=== PATIENT | female | born 1985 | race Caucasian/White ===

== ENCOUNTER 2017-12-10 12:32 | Inpatient (IN) | payer BC ==
[2017-12-10] MEDS ORDERED: Sodium Chloride 0.9% 10 ML Syringe FLUSH PRN (12:34)
[2017-12-10] MEDS ORDERED: Nalbuphine 20 MG/1 ML Amp IVPUSH PRN (12:34)
[2017-12-10] MEDS ORDERED: Ondansetron 4 MG/2 ML SDV IVPUSH PRN (12:34)
--- NOTE | 2017-12-10 12:39 | PCM.LDHP ---
L&D History of Present Illness - General Date of Service: 12/10/17 Admit Problem/Dx: Patient Status Order with Admit Dx/Problem 12/10/17 12:35 Patient Status [ADT] Routine Admission Diagnosis/Problem Admission Diagnosis/Problem Supervision of normal Source of Information: Patient History Limitations: Reports: No Limitations - History of Present Illness Introduction:: Patient is a 32 y/o at 40 1/7 wks who presents for IOL for concerns of decreased FM. Seen in clinic for concerns of less FM over the last 2 days. NST done and overall appropriate, but reviewed options and given Fritz score of 8 patient was offered IOL. She accepted. Otherwise doing well. - Related Data Allergies/Adverse Reactions: Allergies Allergy/AdvReac Type Severity Reaction Status Date / Time amoxicillin Allergy Rash Verified 12/10/17 13:46 diphenhydramine AdvReac Disorientat Verified 12/10/17 13:47 [From Benadryl] ion Home Medications: Home Meds . 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: : 2 Para: 0 LMP (Approximate): - Past Surgical History GI Surgical History: Reports: Other (See Below) (Pilonidal cyst) Female Surgical History: Reports: D&C Social & Family History - Tobacco Use Smoking Status *Q: Never Smoker - Alcohol Use Alcohol Use History: No - Recreational Drug Use Recreational Drug Use: No H&P Review of Systems - Review of Systems: Review Of Systems: See Below General: Reports: No Symptoms Pulmonary: Reports: No Symptoms Cardiovascular: Reports: No Symptoms Gastrointestinal: Reports: No Symptoms Genitourinary: Reports: No Symptoms Musculoskeletal: Reports: No Symptoms L&D Exam - Exam Exam: See Below - OB Specific Contraction Intensity: Irritability Movement: Active Heart Tones: Present Heart Tones per Min: 130 Heart Rate (FHR) Variability: Moderate (6-25 bmp) (Some periods of minimal variabilitiy as well) Presentation: Vertex - Fritz Score Fritz Score Cervix Position: Posterior Fritz Score Consistency: Soft Fritz Score Effacement: >80% Fritz Score Dilation: 1-2 cm Fritz Score 's Station: -1 ,0 Fritz Score Total: 8 - Exam General: Alert, Oriented, Cooperative Lungs: Clear to Auscultation, Normal Respiratory Effort Cardiovascular: Regular Rate, Regular Rhythm GI/Abdominal Exam: Soft, Non-Tender Genitourinary: Normal external exam Extremities: Normal Inspection Skin: Warm, Dry, Intact - Patient Data Result Diagrams: 12/10/17 12:54 - Problem List (1) 40 weeks gestation of SNOMED Code(s): 91688120 ICD Code: Z3A.40 - 40 WEEKS GESTATION OF Status: Acute Current Visit: Yes (2) Decreased movement SNOMED Code(s): 555527682 ICD Code: O36.8190 - DECREASED MOVEMENTS, UNSP TRIMESTER, UNSP Status : Acute Current Visit: Yes Qualifiers: Fetus number: single or unspecified fetus Trimester: third trimester Qualified Code(s): O36.8130 - Decreased movements, third trimester, not applicable or unspecified Problem List Initiated/Reviewed/Updated: Yes Orders Last 24hrs: Active Orders 24 hr Category Date Time Status Patient Status [ADT] Routine ADT 12/10/17 12:35 Ordered Activity as Tolerated [RC] PFP Care 12/10/17 12:34 Ordered Communication Order [RC] ASDIRECTED Care 12/10/17 12:34 Ordered Communication Order [RC] ASDIRECTED Care 12/10/17 12:34 Ordered Communication Order [RC] ASDIRECTED Care 12/10/17 12:34 Ordered Monitoring [RC] INTERMITTENT Care 12/10/17 12:34 Ordered Notify Provider [RC] ASDIRECTED Care 12/10/17 12:34 Ordered Notify Provider [RC] PRN Care 12/10/17 12:34 Ordered Peripheral IV Care [RC] . DIRECTED Care 12/10/17 12:35 Ordered Up ad Zuly [RC] ASDIRECTED Care 12/10/17 12:34 Ordered Urinary Catheter Assessment [RC] ASDIRECTED Care 12/10/17 12:34 Ordered Vaginal Exam [RC] ASDIRECTED Care 12/10/17 12:34 Ordered Vital Signs [RC] ASDIRECTED Care 12/10/17 12:34 Ordered Vital Signs [RC] PER UNIT ROUTINE Care 12/10/17 12:34 Ordered Regular Diet [DIET] Diet 12/10/17 Lunch Ordered CBC W/O DIFF,HEMOGRAM [HEME] Routine Lab 12/10/17 12:34 Ordered TYPE AND SCREEN [BBK] Routine Lab 12/10/17 12:34 Ordered Lactated Ringers [Ringers, Lactated] 1,000 ml Med 12/10/17 12:45 Ordered IV ASDIRECTED Nalbuphine [Nubain] Med 12/10/17 12:34 Ordered 10 mg IVPUSH Q2H PRN Ondansetron [Zofran] Med 12/10/17 12:34 Ordered 4 mg IVPUSH Q4H PRN Oxytocin/Lactated Ringers [Pitocin in LR 10 Units/1,000 Med 12/10/17 12:45 Ordered ML] 10 unit in 1,000 ml IV .CONTINUOUS Oxytocin/Lactated Ringers [Pitocin in LR 10 Units/1,000 Med 12/10/17 12:45 Ordered ML] 10 unit in 1,000 ml IV TITRATE Sodium Chloride 0.9% [Saline Flush] Med 12/10/17 12:34 Ordered 10 ml FLUSH ASDIRECTED PRN Electronic Heart Tones Internal [WOMSER] Per Unit Oth 12/10/17 12:34 Ordered Routine Peripheral IV Insertion Adult [OM.PC] Routine Oth 12/10/17 12:34 Ordered Resuscitation Status Routine Resus Stat 12/10/17 12:34 Ordered Assessment/Plan Comment:: 32 y/o at 40 1/7 wks presents for IOL for decreased FM * CBC and T&S * GBS negative, no need for antibiotics * Pitocin for IOL, AROM when appropriate * Pain management per patient preference * Anticipate
[2017-12-10] MEDS ORDERED: Oxytocin/Lactated Ringers 10 UNIT/1,000 ML BAG IV SCH ×2 (12:45)
[2017-12-10] MEDS: Lactated Ringers 1,000 ML IV SCH ×2 (14:06→18:34)
--- NOTE | 2017-12-10 19:33 | PCM.PREANE ---
Preanesthetic Assessment - Anesthesia/Transfusion/Family Hx Anesthesia History: Prior Anesthesia Reaction Type of Anesthesia Reaction: Excessive Nausea/Vomiting Family History of Anesthesia Reaction: No Transfusion History: No Prior Transfusion(s) - Review of Systems General: No Symptoms Pulmonary: No Symptoms Cardiovascular: No Symptoms Gastrointestinal: No Symptoms Neurological: No Symptoms Other: Reports: None - Physical Assessment Pulse: 82 Respiratory Rate: 18 Blood Pressure: 121/88 Vital Signs: Last Vital Signs Temp 98.0 F 12/10/17 12:34 Pulse 82 12/10/17 12:43 Resp 18 12/10/17 12:34 BP 121/88 12/10/17 12:43 Pulse Ox Height: 5 ft Weight: 90.718 kg ASA Class: 2 Mental Status: Alert & Oriented x3 Airway Class: Mallampati = 1 Dentition: Reports: Normal Dentition Thyro-Mental Finger Breadths: 0 Mouth Opening Finger Breadths: 0 ROM/Head Extension: Full Lungs: Clear to Auscultation, Normal Respiratory Effort Cardiovascular: Regular Rate, Regular Rhythm - Lab Values: Laboratory Last Values WBC 9.24 K/mm3 (3.98-10.04) 12/10/17 12:54 RBC 4.23 M/mm3 (3.98-5.22) 12/10/17 12:54 Hgb 12.6 gm/L (11.2-15.7) 12/10/17 12:54 Hct 37.7 % (34.1-44.9) 12/10/17 12:54 MCV 89.1 fl (79.4-94.8) 12/10/17 12:54 MCH 29.8 pg (25.6-32.2) 12/10/17 12:54 MCHC 33.4 g/dl (32.2-35.5) 12/10/17 12:54 RDW Std Deviation 42.6 fL (36.4-46.3) 12/10/17 12:54 Plt Count 180 K/mm3 (182-369) L 12/10/17 12:54 MPV 11.6 fl (9.4-12.3) 12/10/17 12:54 Blood Type AB POSITIVE 12/10/17 12:54 Gel Antibody Screen Negative 12/10/17 12:54 - Allergies Allergies/Adverse Reactions: Allergies Allergy/AdvReac Type Severity Reaction Status Date / Time amoxicillin Allergy Rash Verified 12/10/17 13:46 diphenhydramine AdvReac Disorientat Verified 12/10/17 13:47 [From Benadryl] ion - Blood Blood Available: No - Acknowledgements Anesthesia Type Planned: Epidural Pt an Appropriate Candidate for the Planned Anesthesia: Yes Alternatives and Risks of Anesthesia Discussed w Pt/Guardian: Yes Pt/Guardian Understands and Agrees with Anesthesia Plan: Yes PreAnesthesia Questionnaire Cardiovascular History: Reports: None Respiratory History: Reports: None Gastrointestinal History: Reports: GERD (with preg) 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 [No Known Home Meds] 12/10/17 [History] - CURRENT (IN HOUSE) MEDS Current Meds: Current Medications Lactated Ringer's (Ringers, Lactated) 1,000 mls @ 40 mls/hr IV ASDIRECTED JOSÉ ANTONIO Last Admin: 12/10/17 18:34 Dose: 40 mls/hr Oxytocin/Lactated Ringer's (Pitocin In Lr 10 Units/1,000 Ml) 10 unit in 1,000 mls @ 12 mls/hr IV TITRATE JOSÉ ANTONIO; 2 MUNITS/MIN PRN Reason: Protocol Last Titration: 12/10/17 17:15 Dose: 10 munits/min, 60 mls/hr Oxytocin/Lactated Ringer's (Pitocin In Lr 10 Units/1,000 Ml) 10 unit in 1,000 mls @ 500 mls/hr IV .CONTINUOUS JOSÉ ANTONIO Nalbuphine HCl (Nubain) 10 mg IVPUSH Q2H PRN PRN Reason: Pain (moderate 4-6) Ondansetron HCl (Zofran) 4 mg IVPUSH Q4H PRN PRN Reason: Nausea/Vomiting Sodium Chloride (Saline Flush) 10 ml FLUSH ASDIRECTED PRN PRN Reason: Keep Vein Open
[2017-12-10] MEDS ORDERED: ePHEDrine 50 MG/ML SDV IVPUSH PRN (19:34)
--- NOTE | 2017-12-10 20:32 | PCM.PNLD ---
Labor Progress Note - VS & Meds Vital Signs: Last Vital Signs Temp 36.7 C 12/10/17 12:34 Pulse 82 12/10/17 19:33 Resp 18 12/10/17 19:33 BP 121/88 12/10/17 19:33 Pulse Ox Active Medications: Current Medications Ephedrine Sulfate (Ephedrine Sulfate) 5 mg IVPUSH ASDIRECTED PRN PRN Reason: Hypotension Fentanyl (Sublimaze) 100 mcg EPIDUR Q3H PRN PRN Reason: Pain Fentanyl/Bupivacaine HCl (Fentanyl/Bupivacaine/Ns 2 Mcg-0.125% 100 Ml) 100 ml EPIDUR ASDIRECTED JOSÉ ANTONIO Lactated Ringer's (Ringers, Lactated) 1,000 mls @ 40 mls/hr IV ASDIRECTED JOSÉ ANTONIO Last Admin: 12/10/17 18:34 Dose: 40 mls/hr Oxytocin/Lactated Ringer's (Pitocin In Lr 10 Units/1,000 Ml) 10 unit in 1,000 mls @ 12 mls/hr IV TITRATE JOSÉ ANTONIO; 2 MUNITS/MIN PRN Reason: Protocol Last Titration: 12/10/17 17:15 Dose: 10 munits/min, 60 mls/hr Oxytocin/Lactated Ringer's (Pitocin In Lr 10 Units/1,000 Ml) 10 unit in 1,000 mls @ 500 mls/hr IV .CONTINUOUS JOSÉ ANTONIO Nalbuphine HCl (Nubain) 10 mg IVPUSH Q2H PRN PRN Reason: Pain (moderate 4-6) Ondansetron HCl (Zofran) 4 mg IVPUSH Q4H PRN PRN Reason: Nausea/Vomiting Sodium Chloride (Saline Flush) 10 ml FLUSH ASDIRECTED PRN PRN Reason: Keep Vein Open - Uterine Contractions Uterine Monitoring Mode: External [place] Contraction Intensity: Mild to Moderate - Monitoring Monitor Mode: External Ultrasound Heart Rate (FHR) Baseline: 140 Heart Rate (FHR) Variability: Moderate (6-25 bmp) (Some periods of minimal variabilitiy as well) Accelerations: Present, 15x15 Decelerations: None Strip Review: Category I - Vaginal Exam Dilation (cm): 2-3 Effacement (Percent): 80 Station: -1 Cervical Position: Midposition - Labor Progress (Free Text) Labor Progress: Patient doing well on 12 of pitocin. Contractions not that uncomfortable. AROM performed.. Continue present management
[2017-12-10] MEDS ORDERED: Bupivacaine 0.25% 10 ML SDV ONE (22:22)
[2017-12-10] MEDS ORDERED: Lidocaine 1.5% with EPINEPHrine 1:200,000 5 ML Amp ONE (22:22)
[2017-12-11] MEDS: Lactated Ringers 1,000 ML IV SCH ×4 (02:30→15:30)
[2017-12-11] MEDS: fentaNYL 100 MCG/2 ML SDV EPIDUR PRN ×2 (03:43→15:30)
[2017-12-11] MEDS: Bupivacaine/fentaNYL/NS 100 ML Bag EPIDUR SCH ×2 (03:43→11:17)
--- NOTE | 2017-12-11 05:34 | PCM.PNLD ---
Labor Progress Note - VS & Meds Vital Signs: Last Vital Signs Temp 36.7 C 12/10/17 12:34 Pulse 82 12/10/17 19:33 Resp 18 12/10/17 19:33 BP 121/88 12/10/17 19:33 Pulse Ox Active Medications: Current Medications Ephedrine Sulfate (Ephedrine Sulfate) 5 mg IVPUSH ASDIRECTED PRN PRN Reason: Hypotension Fentanyl (Sublimaze) 100 mcg EPIDUR Q3H PRN PRN Reason: Pain Last Admin: 12/11/17 03:43 Dose: 100 mcg Fentanyl/Bupivacaine HCl (Fentanyl/Bupivacaine/Ns 2 Mcg-0.125% 100 Ml) 100 ml EPIDUR ASDIRECTED JOSÉ ANTONIO Last Admin: 12/11/17 03:43 Dose: 100 ml Lactated Ringer's (Ringers, Lactated) 1,000 mls @ 40 mls/hr IV ASDIRECTED JOSÉ ANTONIO Last Admin: 12/11/17 04:09 Dose: 999 mls/hr Oxytocin/Lactated Ringer's (Pitocin In Lr 10 Units/1,000 Ml) 10 unit in 1,000 mls @ 12 mls/hr IV TITRATE JOSÉ ANTONIO; 2 MUNITS/MIN PRN Reason: Protocol Last Titration: 12/10/17 20:55 Dose: 0 munits/min, 0 mls/hr Oxytocin/Lactated Ringer's (Pitocin In Lr 10 Units/1,000 Ml) 10 unit in 1,000 mls @ 500 mls/hr IV .CONTINUOUS JOSÉ ANTONIO Nalbuphine HCl (Nubain) 10 mg IVPUSH Q2H PRN PRN Reason: Pain (moderate 4-6) Last Admin: 12/11/17 01:17 Dose: 10 mg Ondansetron HCl (Zofran) 4 mg IVPUSH Q4H PRN PRN Reason: Nausea/Vomiting Sodium Chloride (Saline Flush) 10 ml FLUSH ASDIRECTED PRN PRN Reason: Keep Vein Open - Uterine Contractions Uterine Monitoring Mode: External [place] Contraction Intensity: Moderate - Monitoring Monitor Mode: External Ultrasound Heart Rate (FHR) Baseline: 130 Heart Rate (FHR) Variability: Moderate (6-25 bmp) (Some periods of minimal variabilitiy as well) Accelerations: Present, 15x15 Decelerations: Prolonged (>2x10 min) (One prolonged at ) Strip Review: Category II - Vaginal Exam Dilation (cm): 7 Effacement (Percent): 80 Station: 0 Cervical Position: Midposition - Labor Progress (Free Text) Labor Progress: Patient overall doing well. AROM was at 1999 last night when was on pitocin of 12. Pitocin decreased to off by 2129 due to frequent contractions occurring about every one minute. At about 0100 patient was 6 cm dilated. She eventually requested an epidural around 0315 this AM and is now resting comfortably. Checked by myself now and is 7 cm. Contractions are more spaced out, about every 5-7 minutes. FHR is reassuring overall. Some periods of minimal variability, but overall moderate variability and with positive accelerations. Will re-start pitocin for augmentation and continue to assess closely. Will sign out patient to Dr. Garrett later this AM. Patient aware.
--- NOTE | 2017-12-11 17:19 | PCM.PNLD ---
Labor Progress Note - VS & Meds Vital Signs: Last Vital Signs Temp 36.7 C 12/10/17 12:34 Pulse 112 H 12/11/17 15:30 Resp 18 12/10/17 19:33 BP 122/68 12/11/17 15:30 Pulse Ox 97 12/11/17 03:26 Active Medications: Current Medications Ephedrine Sulfate (Ephedrine Sulfate) 5 mg IVPUSH ASDIRECTED PRN PRN Reason: Hypotension Fentanyl (Sublimaze) 100 mcg EPIDUR Q3H PRN PRN Reason: Pain Last Admin: 12/11/17 15:30 Dose: 100 mcg Fentanyl/Bupivacaine HCl (Fentanyl/Bupivacaine/Ns 2 Mcg-0.125% 100 Ml) 100 ml EPIDUR ASDIRECTED JOSÉ ANTONIO Last Admin: 12/11/17 11:17 Dose: 100 ml Lactated Ringer's (Ringers, Lactated) 1,000 mls @ 40 mls/hr IV ASDIRECTED JOSÉ ANTONIO Last Admin: 12/11/17 15:30 Dose: 500 mls/hr Oxytocin/Lactated Ringer's (Pitocin In Lr 10 Units/1,000 Ml) 10 unit in 1,000 mls @ 12 mls/hr IV TITRATE JOSÉ ANTONIO; 2 MUNITS/MIN PRN Reason: Protocol Last Titration: 12/11/17 16:11 Dose: 19 munits/min, 114 mls/hr Oxytocin/Lactated Ringer's (Pitocin In Lr 10 Units/1,000 Ml) 10 unit in 1,000 mls @ 500 mls/hr IV .CONTINUOUS JOSÉ ANTONIO Nalbuphine HCl (Nubain) 10 mg IVPUSH Q2H PRN PRN Reason: Pain (moderate 4-6) Last Admin: 12/11/17 01:17 Dose: 10 mg Ondansetron HCl (Zofran) 4 mg IVPUSH Q4H PRN PRN Reason: Nausea/Vomiting Sodium Chloride (Saline Flush) 10 ml FLUSH ASDIRECTED PRN PRN Reason: Keep Vein Open - Uterine Contractions Uterine Monitoring Mode: External [place] Contraction Intensity: Moderate - Monitoring Monitor Mode: External Ultrasound Heart Rate (FHR) Baseline: 130 Heart Rate (FHR) Variability: Moderate (6-25 bmp) (Some periods of minimal variabilitiy as well) Accelerations: Present, 15x15 Decelerations: Prolonged (>2x10 min) (One prolonged at ) Strip Review: Category II - Vaginal Exam Dilation (cm): 9 Effacement (Percent): 80 Station: 0 Cervical Position: Midposition - Labor Progress (Free Text) Labor Progress: Minimal progress since 11am. At this point adequate contractions since 2:30 pm. No progress since then. Recommending primary . Patient deciding on this.
[2017-12-11] MEDS ORDERED: Metoclopramide 10 MG/2 ML SDV ONE (17:26)
[2017-12-11] MEDS ORDERED: Morphine PF 1 MG/ML Amp ONE (17:27)
[2017-12-11] MEDS ORDERED: Citric Acid/Sodium Citrate Solution 30 ML Cup ONE (17:27)
[2017-12-11] MEDS ORDERED: Bupivacaine 0.5% 30 ML SDV ONE (17:38)
[2017-12-11] MEDS ORDERED: Metoclopramide 10 MG/2 ML SDV IVPUSH ONE (17:39)
[2017-12-11] MEDS ORDERED: Citric Acid/Sodium Citrate Solution 30 ML Cup PO ONE (17:39)
[2017-12-11] MEDS ORDERED: Sodium Chloride 0.9% 10 ML Syringe FLUSH PRN (17:39)
[2017-12-11] MEDS ORDERED: Lactated Ringers 1,000 ML IV SCH (17:45)
[2017-12-11] MEDS ORDERED: Lactated Ringers 1,000 ML ONE ×2 (17:58→18:49)
[2017-12-11] MEDS ORDERED: Oxytocin 10 Units/1 ML SDV ONE (17:58)
[2017-12-11] MEDS ORDERED: Ondansetron 4 MG/2 ML SDV ONE (17:58)
[2017-12-11] MEDS ORDERED: Phenylephrine 1% 10 MG/ML SDV ONE (17:58)
[2017-12-11] MEDS ORDERED: Ketorolac 30 MG/ML SDV ONE (17:58)
[2017-12-11] MEDS ORDERED: fentaNYL 100 MCG/2 ML SDV ONE (17:58)
[2017-12-11] MEDS ORDERED: Lidocaine 2% with EPINEPHrine 1:200,000 20 ML SDV ONE (17:58)
[2017-12-11] MEDS ORDERED: ceFAZolin 1 GM Vial ONE (17:58)
[2017-12-11] MEDS ORDERED: Meperidine PF 50 MG/ML Syringe IVPUSH PRN (18:21)
[2017-12-11] MEDS ORDERED: Ondansetron 4 MG/2 ML SDV IVPUSH PRN (18:21)
[2017-12-11] MEDS ORDERED: ePHEDrine 50 MG/ML SDV IVPUSH PRN ×2 (18:21→21:08)
[2017-12-11] MEDS ORDERED: Phenylephrine 1 MG in Sodium Chloride 0.9% 10 ML IV SCH (18:30)
[2017-12-11] MEDS ORDERED: ePHEDrine 50 MG/ML SDV ONE (18:46)
[2017-12-11] MEDS ORDERED: Meperidine PF 50 MG/ML Syringe ONE (18:59)
[2017-12-11] MEDS ORDERED: Phenylephrine/Normal Saline 100 MCG/ML 10 ML Syringe ONE (19:10)
--- NOTE | 2017-12-11 19:24 | PCM.POSTAN ---
POST ANESTHESIA ASSESSMENT - MENTAL STATUS Mental Status: Alert - VITAL SIGNS Pulse Rate: 104 SaO2: 99 Resp Rate: 18 Blood Pressure: 93/50 Temperature: 37.3 C - RESPIRATORY Respiratory Status: Respiratory Rate WNL, Airway Patent, O2 Saturation Stable, Supplemental Oxygen - CARDIOVASCULAR CV Status: Pulse Rate WNL, Blood Pressure Stable - GASTROINTESTINAL GI Status: No Symptoms - POST OP HYDRATION Hydration Status: Adequate & Stable
--- NOTE | 2017-12-11 19:45 | PCM.OPNOTE ---
- General Post-Op/Procedure Note Date of Surgery/Procedure: 12/11/17 Findings: normal pelvic anatomy, viable female, OP, 07/04 7#4oz at 1823. Pre Op Diagnosis: failure to progress Post-Op Diagnosis: Same Anesthesia Technique: Epidural Primary Surgeon: Carmen Grarett Outdoor Adventure Guides: Capo Robles Jr Role of Outdoor Adventure Guides: retraction, bleeding, patient safety Fluid Replacement, Intraop: 2,300 Output, Urine Amount: 150 EBL in mLs: 1,500 Complications: None Condition: Good Free Text/Narrative:: Intake & Output 12/11/17 12/11/17 12/11/17 06:59 14:59 22:59 Intake Total 240 [id number] Output Total 1400 Balance 240 9600 The patient was taken to the operating room where epidural anesthesia was dosed to surgical levels without difficulty. The patient was prepped and draped in the usual sterile fashion in the dorsal supine position with a leftward tilt. A Pfannenstiel skin incision was made with the scalpel and carried through to the underlying layer of fascia. The fascia was incised in the midline and extended laterally using Valdez scissors. Tino clamps were used to elevate the superior aspect of the fascial incision, which was elevated, and the underlying rectus muscles were dissected off bluntly and using Valdez scissors. Attention was then turned to the inferior aspect of the fascial incision, which in similar fashion was grasped with Tino clamps, elevated, and the underlying rectus muscles were dissected off bluntly and using the valdez. The rectus muscles were dissected in the midline. The peritoneum was entered bluntly; this incision was extended superiorly and inferiorly with good visualization of the bladder. The bladder blade was inserted. The vesicouterine peritoneum was identified and entered sharply using Metzenbaum scissors. This incision was extended laterally and the bladder flap was created digitally. The bladder blade was reinserted. The lower uterine segment was incised in a transverse fashion using the scalpel and with digital traction. Clear fluid was noted. The was subsequently delivered by flexing the head to the incision. Body and shoulders followed without difficulty. The cord was clamped and cut. The infant was subsequently handed to the awaiting poker manager whose presence had been requested.. The placenta was delivered spontaneously intact with a three-vessel cord noted. The uterus was exteriorized and cleared of all clots and debris. The uterine incision was repaired with one layer of 0 monocryl. After frist layer some bleeding at left noted so second layer undertaken. Further inspection after incision closed and hemostatic revealed significant bleeding lateral and superior to the incision into the left broad ligament which had a defect in it into what appeared to be a branch of the uterine. Significant vigorous bleeding was noted. Small sutures attempting to oversew the area of broad were unsuccessful. Eventually sequential ligation sutures of the uterine were needed to render hemostasis([place] fashion ligation sutures). Uterus returned to abdomen. Some bleeding continued, two additional figure of eight sutures placed. Hemostasis was visualized. Hemostasis was visualized bilaterally on reinspection. The pelvis was copiously irrigated. Continued hemostasis noted. Floseal placed at the left lateral aspect where bleeding had been. The fascia was closed with 1 PDS suture , and the skin was closed with 3-0 monocryl. Sponge, lap, and instrument counts were correct x2. The patient was stable at the completion of the procedure and was subsequently transferred to the recovery room in stable condition.
[2017-12-11] MEDS: fentaNYL 100 MCG/2 ML SDV IVPUSH PRN ×2 (19:53→20:05)
--- NOTE | 2017-12-11 20:21 | PCM48HPAN ---
Post Anesthesia Note - EVALUATION WITHIN 48HRS OF ANESTHETIC Vital Signs in Normal Range: Yes Patient Participated in Evaluation: Yes Respiratory Function Stable: Yes Airway Patent: Yes Cardiovascular Function Stable: Yes Hydration Status Stable: Yes Pain Control Satisfactory: Yes Nausea and Vomiting Control Satisfactory: Yes Mental Status Recovered: Yes
[2017-12-11] MEDS ORDERED: Naloxone 0.4 MG/ML SDV IVPUSH PRN (21:08)
[2017-12-11] MEDS ORDERED: Witch Hazel Medicated Pads 100/Jar TOP PRN (21:08)
[2017-12-11] MEDS ORDERED: Lanolin 100% Cream 7 GM Tube TOP PRN (21:08)
[2017-12-11] MEDS ORDERED: Dextrose 5%-Lactated Ringers 1,000 ML IV SCH (21:08)
[2017-12-12] MEDS: Ondansetron 4 MG/2 ML SDV IVPUSH PRN ×2 (02:49→09:29)
--- NOTE | 2017-12-12 08:07 | PCM.PNPP ---
- General Info Date of Service: 12/12/17 Functional Status: Reports: Pain Controlled - Review of Systems General: Reports: No Symptoms HEENT: Reports: No Symptoms Pulmonary: Reports: No Symptoms Cardiovascular: Reports: No Symptoms Gastrointestinal: Reports: No Symptoms Genitourinary: Reports: No Symptoms Musculoskeletal: Reports: No Symptoms Skin: Reports: No Symptoms Neurological: Reports: No Symptoms Psychiatric: Reports: No Symptoms - General Info Date of Service: 12/12/17 - Patient Data Vital Signs - Most Recent: Last Vital Signs Temp 36.6 C 12/12/17 04:18 Pulse 107 H 12/12/17 04:18 Resp 16 12/12/17 06:51 BP 117/70 12/12/17 04:18 Pulse Ox 99 12/12/17 06:51 Weight - Most Recent: 90.718 kg I&O - Last 24 Hours: Intake & Output 12/11/17 12/12/17 12/12/17 22:59 06:59 14:59 Intake Total 98988 1600 Output Total 1800 650 Balance 53825 950 Lab Results - Last 24 Hours: Laboratory Results - last 24 hr 12/11/17 12/11/17 12/12/17 Range/Units 19:37 23:54 06:25 WBC 20.91 H 19.70 H 19.28 H (3.98-10.04) K/mm3 RBC 3.08 L 2.77 L 2.83 L (3.98-5.22) M/mm3 Hgb 9.4 L 8.4 L 8.4 L (11.2-15.7) gm/L Hct 28.1 L 25.1 L 25.9 L (34.1-44.9) % MCV 91.2 90.6 91.5 (79.4-94.8) fl MCH 30.5 30.3 29.7 (25.6-32.2) pg MCHC 33.5 33.5 32.4 (32.2-35.5) g/dl RDW Std Deviation 42.8 42.7 43.1 (36.4-46.3) fL Plt Count 148 L 146 L 152 L (182-369) K/mm3 MPV 11.1 10.8 10.8 (9.4-12.3) fl Neut % (Auto) 88.8 H 88.5 H 86.1 H (34.0-71.1) % Lymph % (Auto) 3.9 L 4.2 L 6.1 L (19.3-51.7) % Cook % (Auto) 7.1 6.9 7.3 (4.7-12.5) % Eos % (Auto) 0 L 0 L 0.1 L (0.7-5.8) Baso % (Auto) 0.0 L 0.1 0.1 (0.1-1.2) % Neut # (Auto) 18.55 H 17.44 H 16.63 H (1.56-6.13) K/mm3 Lymph # (Auto) 0.81 L 0.83 L 1.18 (1.18-3.74) K/mm3 Cook # (Auto) 1.49 H 1.35 H 1.40 H (0.24-0.36) K/mm3 Eos # (Auto) 0.00 L 0.00 L 0.01 L (0.04-0.36) K/mm3 Baso # (Auto) 0.01 0.02 0.01 (0.01-0.08) K/mm3 Manual Slide Review Abnormal smear Abnormal smear Abnormal smear Med Orders - Current: Current Medications Docusate Sodium (Colace) 100 mg PO Q12H PRN PRN Reason: Constipation Emollient Ointment (Lansinoh Hpa) 0 gm TOP ASDIRECTED PRN PRN Reason: Sore Nipples Ephedrine Sulfate (Ephedrine Sulfate) 5 mg IVPUSH SEECOMMENT PRN PRN Reason: Other Ibuprofen (Motrin) 600 mg PO Q6H PRN PRN Reason: mild pain or fever Naloxone HCl (Narcan) 0.1 mg IVPUSH SEECOMMENT PRN PRN Reason: Respiratory Depression Ondansetron HCl (Zofran) 4 mg IVPUSH Q4H PRN PRN Reason: Nausea/Vomiting Last Admin: 12/12/17 02:49 Dose: 4 mg Oxycodone/Acetaminophen (Percocet 325-5 Mg) 2 tab PO Q6H PRN PRN Reason: Pain (moderate 4-6) Witch Roula (Tucks) 1 pad TOP ASDIRECTED PRN PRN Reason: Perineal Comfort Measure Discontinued Medications Bupivacaine HCl (Marcaine 0.5%) Confirm Administered Dose 30 ml .ROUTE .STK-MED ONE Stop: 12/11/17 17:39 Last Admin: 12/11/17 18:19 Dose: 30 ml Cefazolin Sodium (Ancef) Confirm Administered Dose 2 gm .ROUTE .STK-MED ONE Stop: 12/11/17 17:59 Citric Acid/Sodium Citrate (Bicitra Solution) Confirm Administered Dose 30 ml .ROUTE .STK-MED ONE Stop: 12/11/17 17:28 Last Admin: 12/11/17 17:42 Dose: 30 ml Citric Acid/Sodium Citrate (Bicitra Solution) 30 ml PO ONETIME ONE Stop: 12/11/17 17:40 Ephedrine Sulfate (Ephedrine Sulfate) 5 mg IVPUSH ASDIRECTED PRN PRN Reason: Hypotension Ephedrine Sulfate (Ephedrine Sulfate) 5 mg IVPUSH ASDIRECTED PRN PRN Reason: Hypotension Ephedrine Sulfate (Ephedrine Sulfate) Confirm Administered Dose 50 mg .ROUTE .STK-MED ONE Stop: 12/11/17 18:47 Fentanyl (Sublimaze) 100 mcg EPIDUR Q3H PRN PRN Reason: Pain Last Admin: 12/11/17 15:30 Dose: 100 mcg Fentanyl (Sublimaze) Confirm Administered Dose 100 mcg .ROUTE .STK-MED ONE Stop: 12/11/17 17:59 Fentanyl (Sublimaze) 50 mcg IVPUSH Q5M PRN PRN Reason: Pain Last Admin: 12/11/17 20:05 Dose: 50 mcg Fentanyl/Bupivacaine HCl (Fentanyl/Bupivacaine/Ns 2 Mcg-0.125% 100 Ml) 100 ml EPIDUR ASDIRECTED [facility] Last Admin: 12/11/17 11:17 Dose: 100 ml Lactated Ringer's (Ringers, Lactated) 1,000 mls @ 40 mls/hr IV ASDIRECTED [facility] Last Admin: 12/11/17 15:30 Dose: 500 mls/hr Oxytocin/Lactated Ringer's (Pitocin In Lr 10 Units/1,000 Ml) 10 unit in 1,000 mls @ 12 mls/hr IV TITRATE J[facility] ANTONIO; 2 MUNITS/MIN PRN Reason: Protocol Last Titration: 12/11/17 16:11 Dose: 19 munits/min, 114 mls/hr Oxytocin/Lactated Ringer's (Pitocin In Lr 10 Units/1,000 Ml) 10 unit in 1,000 mls @ 500 mls/hr IV .CONTINUOUS J[facility] ANTONIO Lactated Ringer's (Ringers, Lactated) 1,000 mls @ 125 mls/hr IV ASDIRECTED [facility] Lactated Ringer's (Ringers, Lactated) Confirm Administered Dose 1,000 mls @ as directed .ROUTE .STK-MED ONE Stop: 12/11/17 17:59 Phenylephrine HCl 1 mg/ Sodium (Chloride) 10.1 mls @ 1 mls/sec IV TITRATE [facility] PRN Reason: Protocol Lactated Ringer's (Ringers, Lactated) Confirm Administered Dose 1,000 mls @ as directed .ROUTE .STK-MED ONE Stop: 12/11/17 18:50 Dextrose/Lactated Ringer's (Dextrose 5%-Lactated Ringers) 1,000 mls @ 125 mls/ hr IV ASDIRECTED [facility] Stop: 12/12/17 05:07 Last Admin: 12/11/17 22:40 Dose: 125 mls/hr Ketorolac Tromethamine (Toradol) Confirm Administered Dose 30 mg .ROUTE .STK- MED ONE Stop: 12/11/17 17:59 Lidocaine/Epinephrine (Xylocaine-Mpf 2%-Epi 1:200,000) Confirm Administered Dose 20 ml .ROUTE .STK-MED ONE Stop: 12/11/17 17:59 Meperidine HCl (Demerol) 12.5 mg IVPUSH ONETIME PRN PRN Reason: shivering Meperidine HCl (Demerol) Confirm Administered Dose 50 mg .ROUTE .STK-MED ONE Stop: 12/11/17 19:00 Metoclopramide HCl (Reglan) Confirm Administered Dose 10 mg .ROUTE .STK-MED ONE Stop: 12/11/17 17:27 Last Admin: 12/11/17 17:42 Dose: 10 mg Metoclopramide HCl (Reglan) 10 mg IVPUSH ONETIME ONE Stop: 12/11/17 17:40 Morphine Sulfate (Duramorph Pf) Confirm Administered Dose 1 mg .ROUTE .STK-MED ONE Stop: 12/11/17 17:28 Nalbuphine HCl (Nubain) 10 mg IVPUSH Q2H PRN PRN Reason: Pain (moderate 4-6) Last Admin: 12/11/17 01:17 Dose: 10 mg Ondansetron HCl (Zofran) 4 mg IVPUSH Q4H PRN PRN Reason: Nausea/Vomiting Ondansetron HCl (Zofran) Confirm Administered Dose 4 mg .ROUTE .STK-MED ONE Stop: 12/11/17 17:59 Ondansetron HCl (Zofran) 4 mg IVPUSH ONETIME PRN PRN Reason: Nausea/Vomiting Oxytocin (Pitocin) Confirm Administered Dose 10 unit .ROUTE .STK-MED ONE Stop: 12/11/17 17:59 Phenylephrine HCl (John-Synephrine) Confirm Administered Dose 10 mg .ROUTE .STK- MED ONE Stop: 12/11/17 17:59 Phenylephrine HCl (Phenylephrine In Ns 100 Mcg/Ml) Confirm Administered Dose 1 mg .ROUTE .STK-MED ONE Stop: 12/11/17 19:11 Sodium Chloride (Saline Flush) 10 ml FLUSH ASDIRECTED PRN PRN Reason: Keep Vein Open Sodium Chloride (Saline Flush) 10 ml FLUSH ASDIRECTED PRN PRN Reason: Keep Vein Open - Infant Interaction Infant Disposition, : at Bedside Support Person: , Dry Pan Operator - Recovery Exam Fundal Tone: Firm Fundal Level: 1 Fingerbreadths Below Umbilicus Fundal Placement: Midline Lochia Amount: Scant Lochia Color: Rubra/Red Perineum Description: Intact, Minimal Bruising/Swelling Episiotomy/Laceration: None Bladder Status: Indwelling Catheter in Place - Exam General: Alert, Oriented HEENT: Pupils Equal Neck: Supple Lungs: Clear to Auscultation, Normal Respiratory Effort Cardiovascular: Regular Rate, Regular Rhythm GI/Abdominal Exam: Normal Bowel Sounds, Soft, Non-Tender, No Organomegaly, No Distention, No Abnormal Bruit, No Mass, Pelvis Stable Extremities: Normal Inspection, Normal Range of Motion, Non-Tender, No Pedal Edema, Normal Capillary Refill Skin: Warm, Dry, Intact Wound/Incisions: Healing Well Neurological: No New Focal Deficit Psy/Mental Status: Alert, Normal Affect, Normal Mood - Problem List Review Problem List Initiated/Reviewed/Updated: Yes - My Orders Last 24 Hours: My Active Orders 12/11/17 17:41 Heart Tones [RC] PER UNIT ROUTINE Peripheral IV Care [RC] Q2HR Vital Signs [RC] PFP 02/16/18 21:08 Patient Status [ADT] Routine Communication Order [RC] PER UNIT ROUTINE Communication Order [RC] PER UNIT ROUTINE Notify Provider Intake and Out [RC] ASDIRECTED Vital Signs [RC] Q1HR Acetaminophen/oxyCODONE [Percocet 325-5 MG] 2 tab PO Q6H PRN Docusate Sodium [Colace] 100 mg PO Q12H PRN Ibuprofen [Motrin] 600 mg PO Q6H PRN Lanolin [Lansinoh HPA] See Dose Instructions TOP ASDIRECTED PRN Naloxone [Narcan] 0.1 mg IVPUSH SEECOMMENT PRN Witch Roula [Tucks] 1 pad TOP ASDIRECTED PRN ePHEDrine [ePHEDrine Sulfate] 5 mg IVPUSH SEECOMMENT PRN Assess Lochia [WOMSER] Per Unit Routine Assess Uterine Involution [WOMSER] Per Unit Routine Medication Administration Instruction [OM.PC] Routine 12/12/17 02:30 Ondansetron [Zofran] 4 mg IVPUSH Q4H PRN 12/12/17 19:28 Urinary Catheter Removal [RC] Per Unit Routine - Assessment Assessment:: POD1 Doing great. No issues. Nausea. Not dizzy at this point. Will see how today goes in terms of symptoms with anemia
[2017-12-12] MEDS: Acetaminophen/oxyCODONE 325-5 MG Tab PO PRN ×2 (14:17→19:54)
[2017-12-12] MEDS ORDERED: Polyethylene Glycol 3350 Powder 17 GM Packet PO PRN (19:33)
[2017-12-12] MEDS: Ibuprofen 600 MG Tab PO PRN (22:30)
[2017-12-13] MEDS: Acetaminophen/oxyCODONE 325-5 MG Tab PO PRN ×4 (01:57→21:15)
[2017-12-13] MEDS: Ibuprofen 600 MG Tab PO PRN ×3 (04:49→21:11)
--- NOTE | 2017-12-13 07:41 | PCM.PNPP ---
- General Info Date of Service: 12/13/17 Functional Status: Reports: Pain Controlled - Review of Systems General: Reports: No Symptoms HEENT: Reports: No Symptoms Pulmonary: Reports: No Symptoms Cardiovascular: Reports: No Symptoms Gastrointestinal: Reports: No Symptoms Genitourinary: Reports: No Symptoms Musculoskeletal: Reports: No Symptoms Skin: Reports: No Symptoms Neurological: Reports: No Symptoms Psychiatric: Reports: No Symptoms - General Info Date of Service: 12/13/17 - Patient Data Vital Signs - Most Recent: Last Vital Signs Temp 36.7 C 12/13/17 02:52 Pulse 88 12/13/17 02:52 Resp 16 12/13/17 02:52 BP 92/59 L 12/13/17 02:52 Pulse Ox 94 L 12/13/17 02:52 Weight - Most Recent: 90.718 kg I&O - Last 24 Hours: Intake & Output 12/12/17 12/13/17 12/13/17 22:59 06:59 14:59 Intake Total 2300 Output Total 1050 550 Balance -1050 1750 Lab Results - Last 24 Hours: Laboratory Results - last 24 hr 12/13/17 Range/Units 06:03 WBC 13.45 H (3.98-10.04) K/mm3 RBC 2.36 L (3.98-5.22) M/mm3 Hgb 7.1 L* (11.2-15.7) gm/L Hct 21.9 L (34.1-44.9) % MCV 92.8 (79.4-94.8) fl MCH 30.1 (25.6-32.2) pg MCHC 32.4 (32.2-35.5) g/dl RDW Std Deviation 44.1 (36.4-46.3) fL Plt Count 148 L (182-369) K/mm3 MPV 10.7 (9.4-12.3) fl Med Orders - Current: Current Medications Docusate Sodium (Colace) 100 mg PO Q12H PRN PRN Reason: Constipation Emollient Ointment (Lansinoh Hpa) 0 gm TOP ASDIRECTED PRN PRN Reason: Sore Nipples Ephedrine Sulfate (Ephedrine Sulfate) 5 mg IVPUSH SEECOMMENT PRN PRN Reason: Other Ibuprofen (Motrin) 600 mg PO Q6H PRN PRN Reason: mild pain or fever Last Admin: 12/13/17 04:49 Dose: 600 mg Naloxone HCl (Narcan) 0.1 mg IVPUSH SEECOMMENT PRN PRN Reason: Respiratory Depression Ondansetron HCl (Zofran) 4 mg IVPUSH Q4H PRN PRN Reason: Nausea/Vomiting Last Admin: 12/12/17 09:29 Dose: 4 mg Oxycodone/Acetaminophen (Percocet 325-5 Mg) 2 tab PO Q6H PRN PRN Reason: Pain (moderate 4-6) Last Admin: 12/13/17 01:57 Dose: 2 tab Polyethylene Glycol (Miralax) 17 gm PO DAILY PRN PRN Reason: Constipation Witch Roula (Tucks) 1 pad TOP ASDIRECTED PRN PRN Reason: Perineal Comfort Measure Discontinued Medications Bupivacaine HCl (Marcaine 0.5%) Confirm Administered Dose 30 ml .ROUTE .STK-MED ONE Stop: 12/11/17 17:39 Last Admin: 12/11/17 18:19 Dose: 30 ml Cefazolin Sodium (Ancef) Confirm Administered Dose 2 gm .ROUTE .STK-MED ONE Stop: 12/11/17 17:59 Citric Acid/Sodium Citrate (Bicitra Solution) Confirm Administered Dose 30 ml .ROUTE .STK-MED ONE Stop: 12/11/17 17:28 Last Admin: 12/11/17 17:42 Dose: 30 ml Citric Acid/Sodium Citrate (Bicitra Solution) 30 ml PO ONETIME ONE Stop: 12/11/17 17:40 Last Admin: 12/12/17 12:34 Dose: Not Given Ephedrine Sulfate (Ephedrine Sulfate) 5 mg IVPUSH ASDIRECTED PRN PRN Reason: Hypotension Ephedrine Sulfate (Ephedrine Sulfate) 5 mg IVPUSH ASDIRECTED PRN PRN Reason: Hypotension Ephedrine Sulfate (Ephedrine Sulfate) Confirm Administered Dose 50 mg .ROUTE .STK-MED ONE Stop: 12/11/17 18:47 Fentanyl (Sublimaze) 100 mcg EPIDUR Q3H PRN PRN Reason: Pain Last Admin: 12/11/17 15:30 Dose: 100 mcg Fentanyl (Sublimaze) Confirm Administered Dose 100 mcg .ROUTE .STK-MED ONE Stop: 02/16/18 17:59 Fentanyl (Sublimaze) 50 mcg IVPUSH Q5M PRN PRN Reason: Pain Last Admin: 12/11/17 20:05 Dose: 50 mcg Fentanyl/Bupivacaine HCl (Fentanyl/Bupivacaine/Ns 2 Mcg-0.125% 100 Ml) 100 ml EPIDUR ASDIRECTED [facility] Last Admin: 12/11/17 11:17 Dose: 100 ml Lactated Ringer's (Ringers, Lactated) 1,000 mls @ 40 mls/hr IV ASDIRECTED [facility] Last Admin: 12/11/17 15:30 Dose: 500 mls/hr Oxytocin/Lactated Ringer's (Pitocin In Lr 10 Units/1,000 Ml) 10 unit in 1,000 mls @ 12 mls/hr IV TITRATE [facility] ANTONIO; 2 MUNITS/MIN PRN Reason: Protocol Last Titration: 12/11/17 16:11 Dose: 19 munits/min, 114 mls/hr Oxytocin/Lactated Ringer's (Pitocin In Lr 10 Units/1,000 Ml) 10 unit in 1,000 mls @ 500 mls/hr IV .CONTINUOUS JOS[facility] ANTONIO Lactated Ringer's (Ringers, Lactated) 1,000 mls @ 125 mls/hr IV ASDIRECTED [facility] Lactated Ringer's (Ringers, Lactated) Confirm Administered Dose 1,000 mls @ as directed .ROUTE .STK-MED ONE Stop: 12/11/17 17:59 Phenylephrine HCl 1 mg/ Sodium (Chloride) 10.1 mls @ 1 mls/sec IV TITRATE [facility] ANTON[facility] PRN Reason: Protocol Lactated Ringer's (Ringers, Lactated) Confirm Administered Dose 1,000 mls @ as directed .ROUTE .STK-MED ONE Stop: 12/11/17 18:50 Dextrose/Lactated Ringer's (Dextrose 5%-Lactated Ringers) 1,000 mls @ 125 mls/ hr IV ASDIRECTED [facility] Stop: 12/12/17 05:07 Last Admin: 12/11/17 22:40 Dose: 125 mls/hr Ketorolac Tromethamine (Toradol) Confirm Administered Dose 30 mg .ROUTE .STK- MED ONE Stop: 12/11/17 17:59 Lidocaine/Epinephrine (Xylocaine-Mpf 2%-Epi 1:200,000) Confirm Administered Dose 20 ml .ROUTE .STK-MED ONE Stop: 12/11/17 17:59 Meperidine HCl (Demerol) 12.5 mg IVPUSH ONETIME PRN PRN Reason: shivering Meperidine HCl (Demerol) Confirm Administered Dose 50 mg .ROUTE .STK-MED ONE Stop: 12/11/17 19:00 Metoclopramide HCl (Reglan) Confirm Administered Dose 10 mg .ROUTE .STK-MED ONE Stop: 12/11/17 17:27 Last Admin: 12/11/17 17:42 Dose: 10 mg Metoclopramide HCl (Reglan) 10 mg IVPUSH ONETIME ONE Stop: 12/11/17 17:40 Last Admin: 12/12/17 12:35 Dose: Not Given Morphine Sulfate (Duramorph Pf) Confirm Administered Dose 1 mg .ROUTE .STK-MED ONE Stop: 12/11/17 17:28 Nalbuphine HCl (Nubain) 10 mg IVPUSH Q2H PRN PRN Reason: Pain (moderate 4-6) Last Admin: 12/11/17 01:17 Dose: 10 mg Ondansetron HCl (Zofran) 4 mg IVPUSH Q4H PRN PRN Reason: Nausea/Vomiting Ondansetron HCl (Zofran) Confirm Administered Dose 4 mg .ROUTE .STK-MED ONE Stop: 12/11/17 17:59 Ondansetron HCl (Zofran) 4 mg IVPUSH ONETIME PRN PRN Reason: Nausea/Vomiting Oxytocin (Pitocin) Confirm Administered Dose 10 unit .ROUTE .STK-MED ONE Stop: 12/11/17 17:59 Phenylephrine HCl (John-Synephrine) Confirm Administered Dose 10 mg .ROUTE .STK- MED ONE Stop: 12/11/17 17:59 Phenylephrine HCl (Phenylephrine In Ns 100 Mcg/Ml) Confirm Administered Dose 1 mg .ROUTE .STK-MED ONE Stop: 12/11/17 19:11 Sodium Chloride (Saline Flush) 10 ml FLUSH ASDIRECTED PRN PRN Reason: Keep Vein Open Sodium Chloride (Saline Flush) 10 ml FLUSH ASDIRECTED PRN PRN Reason: Keep Vein Open - Infant Interaction Infant Disposition, : [place] at Bedside Support 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: , 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 - Recovery Exam Fundal Tone: Firm Fundal Level: 1 Fingerbreadths Below Umbilicus Fundal Placement: Midline Lochia Amount: Scant, Small Lochia Color: Rubra/Red Perineum Description: Intact, Minimal Bruising/Swelling Episiotomy/Laceration: None Bladder Status: Voiding Urinary Elimination: Indwelling Catheter - Exam General: Alert, Oriented HEENT: Pupils Equal Neck: Supple Lungs: Clear to Auscultation, Normal Respiratory Effort Cardiovascular: Regular Rate, Regular Rhythm GI/Abdominal Exam: Normal Bowel Sounds, Soft, Non-Tender, No Organomegaly, No Distention, No Abnormal Bruit, No Mass, Pelvis Stable Extremities: Normal Inspection, Normal Range of Motion, Non-Tender, No Pedal Edema, Normal Capillary Refill Skin: Warm, Dry, Intact Wound/Incisions: Healing Well Neurological: No New Focal Deficit Psy/Mental Status: Alert, Normal Affect, Normal Mood - Problem List Review Problem List Initiated/Reviewed/Updated: Yes - My Orders Last 24 Hours: My Active Orders 12/12/17 19:33 Polyethylene Glycol 3350 [MiraLAX] 17 gm PO DAILY PRN - Assessment Assessment:: POD2 Doing great. No issues. Nausea improved Moving more No s/s of anemia - Plan Plan:: Postop anemia Doing well. Stable
[2017-12-13] MEDS: Simethicone 80 MG Tab.Chew PO PRN ×2 (10:25→14:38)
[2017-12-13] MEDS: Docusate Sodium 100 MG Cap PO PRN ×2 (10:26→21:17)
[2017-12-14] MEDS: Ibuprofen 600 MG Tab PO PRN (03:22)
[2017-12-14] MEDS: Acetaminophen/oxyCODONE 325-5 MG Tab PO PRN ×2 (03:23→11:06)
[2017-12-14] MEDS: Simethicone 80 MG Tab.Chew PO PRN (03:23)
--- NOTE | 2017-12-14 08:09 | PCM.DCSUM1 ---
Discharge Summary - Hospital Course Brief History: Admitted in labor. Eventually proceeded to after adequate contractions with no tire changer aircraft 7 hours. - Discharge Data Discharge Date: 12/14/17 Discharge Disposition: Home, Self-Care 01 Condition: Good - Patient Summary/Data Hospital Course: Significant post op anemia. Tolerated well. - Patient Instructions Diet: Usual Diet as Tolerated Activity: No Strenuous Activities Activity, Other: pelvic rest Driving: May Drive Today Wound/Incision Care: Keep Operative Site/Wound Site Clean and Dry Notify Provider of: Fever, Increased Pain, Swelling and Redness, Drainage, Nausea and/or Vomiting - Discharge Plan Home Medications: Home Meds . [No Known Home Meds] 12/10/17 [History] Referrals: Erlinda Lockett MD [Physician] - (2 weeks with CBC) - Discharge Summary/Plan Comment DC Time >30 min.: No - Patient Data Vitals - Most Recent: Last Vital Signs Temp 36.7 C 12/13/17 20:00 Pulse 82 12/14/17 03:26 Resp 18 12/14/17 03:26 BP 110/64 12/14/17 03:26 Pulse Ox 94 L 12/14/17 03:26 Weight - Most Recent: 90.718 kg I&O - Last 24 hours: Intake & Output 12/13/17 12/14/17 12/14/17 22:59 06:59 14:59 Intake Total 180 Balance 180 Med Orders - Current: Current Medications Docusate Sodium (Colace) 100 mg PO Q12H PRN PRN Reason: Constipation Last Admin: 12/13/17 21:17 Dose: 100 mg Emollient Ointment (Lansinoh Hpa) 0 gm TOP ASDIRECTED PRN PRN Reason: Sore Nipples Last Admin: 12/13/17 10:25 Dose: 1 drop Ephedrine Sulfate (Ephedrine Sulfate) 5 mg IVPUSH SEECOMMENT PRN PRN Reason: Other Ibuprofen (Motrin) 600 mg PO Q6H PRN PRN Reason: mild pain or fever Last Admin: 12/14/17 03:22 Dose: 600 mg Naloxone HCl (Narcan) 0.1 mg IVPUSH SEECOMMENT PRN PRN Reason: Respiratory Depression Ondansetron HCl (Zofran) 4 mg IVPUSH Q4H PRN PRN Reason: Nausea/Vomiting Last Admin: 12/12/17 09:29 Dose: 4 mg Oxycodone/Acetaminophen (Percocet 325-5 Mg) 2 tab PO Q6H PRN PRN Reason: Pain (moderate 4-6) Last Admin: 12/14/17 03:23 Dose: 2 tab Polyethylene Glycol (Miralax) 17 gm PO DAILY PRN PRN Reason: Constipation Simethicone (Simethicone) 80 mg PO ASDIRECTED PRN PRN Reason: bloating Last Admin: 12/14/17 03:23 Dose: 80 mg Witch Roula (Tucks) 1 pad TOP ASDIRECTED PRN PRN Reason: Perineal Comfort Measure Discontinued Medications Bupivacaine HCl (Marcaine 0.5%) Confirm Administered Dose 30 ml .ROUTE .STK-MED ONE Stop: 12/11/17 17:39 Last Admin: 12/11/17 18:19 Dose: 30 ml Cefazolin Sodium (Ancef) Confirm Administered Dose 2 gm .ROUTE .STK-MED ONE Stop: 12/11/17 17:59 Citric Acid/Sodium Citrate (Bicitra Solution) Confirm Administered Dose 30 ml .ROUTE .STK-MED ONE Stop: 12/11/17 17:28 Last Admin: 12/11/17 17:42 Dose: 30 ml Citric Acid/Sodium Citrate (Bicitra Solution) 30 ml PO ONETIME ONE Stop: 12/11/17 17:40 Last Admin: 12/12/17 12:34 Dose: Not Given Ephedrine Sulfate (Ephedrine Sulfate) 5 mg IVPUSH ASDIRECTED PRN PRN Reason: Hypotension Ephedrine Sulfate (Ephedrine Sulfate) 5 mg IVPUSH ASDIRECTED PRN PRN Reason: Hypotension Ephedrine Sulfate (Ephedrine Sulfate) Confirm Administered Dose 50 mg .ROUTE .STK-MED ONE Stop: 12/11/17 18:47 Fentanyl (Sublimaze) 100 mcg EPIDUR Q3H PRN PRN Reason: Pain Last Admin: 12/11/17 15:30 Dose: 100 mcg Fentanyl (Sublimaze) Confirm Administered Dose 100 mcg .ROUTE .STK-MED ONE Stop: 12/11/17 17:59 Fentanyl (Sublimaze) 50 mcg IVPUSH Q5M PRN PRN Reason: Pain Last Admin: 02/16/18 20:05 Dose: 50 mcg Fentanyl/Bupivacaine HCl (Fentanyl/Bupivacaine/Ns 2 Mcg-0.125% 100 Ml) 100 ml EPIDUR ASDIRECTED [facility] Last Admin: 12/11/17 11:17 Dose: 100 ml Lactated Ringer's (Ringers, Lactated) 1,000 mls @ 40 mls/hr IV ASDIRECTED [facility] Last Admin: 12/11/17 15:30 Dose: 500 mls/hr Oxytocin/Lactated Ringer's (Pitocin In Lr 10 Units/1,000 Ml) 10 unit in 1,000 mls @ 12 mls/hr IV TITRATE [facility]; 2 MUNITS/MIN PRN Reason: Protocol Last Titration: 12/11/17 16:11 Dose: 19 munits/min, 114 mls/hr Oxytocin/Lactated Ringer's (Pitocin In Lr 10 Units/1,000 Ml) 10 unit in 1,000 mls @ 500 mls/hr IV .CONTINUOUS [facility] Lactated Ringer's (Ringers, Lactated) 1,000 mls @ 125 mls/hr IV ASDIRECTED [facility] Lactated Ringer's (Ringers, Lactated) Confirm Administered Dose 1,000 mls @ as directed .ROUTE .STK-MED ONE Stop: 12/11/17 17:59 Phenylephrine HCl 1 mg/ Sodium (Chloride) 10.1 mls @ 1 mls/sec IV TITRATE [facility] ANTON[facility] PRN Reason: Protocol Lactated Ringer's (Ringers, Lactated) Confirm Administered Dose 1,000 mls @ as directed .ROUTE .STK-MED ONE Stop: 12/11/17 18:50 Dextrose/Lactated Ringer's (Dextrose 5%-Lactated Ringers) 1,000 mls @ 125 mls/ hr IV ASDIRECTED [facility] Stop: 12/12/17 05:07 Last Admin: 12/11/17 22:40 Dose: 125 mls/hr Ketorolac Tromethamine (Toradol) Confirm Administered Dose 30 mg .ROUTE .STK- MED ONE Stop: 12/11/17 17:59 Lidocaine/Epinephrine (Xylocaine-Mpf 2%-Epi 1:200,000) Confirm Administered Dose 20 ml .ROUTE .STK-MED ONE Stop: 12/11/17 17:59 Meperidine HCl (Demerol) 12.5 mg IVPUSH ONETIME PRN PRN Reason: shivering Meperidine HCl (Demerol) Confirm Administered Dose 50 mg .ROUTE .STK-MED ONE Stop: 12/11/17 19:00 Metoclopramide HCl (Reglan) Confirm Administered Dose 10 mg .ROUTE .STK-MED ONE Stop: 12/11/17 17:27 Last Admin: 12/11/17 17:42 Dose: 10 mg Metoclopramide HCl (Reglan) 10 mg IVPUSH ONETIME ONE Stop: 12/11/17 17:40 Last Admin: 12/12/17 12:35 Dose: Not Given Morphine Sulfate (Duramorph Pf) Confirm Administered Dose 1 mg .ROUTE .STK-MED ONE Stop: 12/11/17 17:28 Nalbuphine HCl (Nubain) 10 mg IVPUSH Q2H PRN PRN Reason: Pain (moderate 4-6) Last Admin: 12/11/17 01:17 Dose: 10 mg Ondansetron HCl (Zofran) 4 mg IVPUSH Q4H PRN PRN Reason: Nausea/Vomiting Ondansetron HCl (Zofran) Confirm Administered Dose 4 mg .ROUTE .STK-MED ONE Stop: 12/11/17 17:59 Ondansetron HCl (Zofran) 4 mg IVPUSH ONETIME PRN PRN Reason: Nausea/Vomiting Oxytocin (Pitocin) Confirm Administered Dose 10 unit .ROUTE .STK-MED ONE Stop: 12/11/17 17:59 Phenylephrine HCl (John-Synephrine) Confirm Administered Dose 10 mg .ROUTE .STK- MED ONE Stop: 12/11/17 17:59 Phenylephrine HCl (Phenylephrine In Ns 100 Mcg/Ml) Confirm Administered Dose 1 mg .ROUTE .STCamera360-MED ONE Stop: 12/11/17 19:11 Sodium Chloride (Saline Flush) 10 ml FLUSH ASDIRECTED PRN PRN Reason: Keep Vein Open Sodium Chloride (Saline Flush) 10 ml FLUSH ASDIRECTED PRN PRN Reason: Keep Vein Open *Q Meaningful Use (DIS) - VTE *Q VTE Criteria *Q: - Stroke *Q Stroke Criteria *Q: - AMI *Q AMI Criteria *Q:
== END 2017-12-14 11:12 | disposition home or self-care (01) | DRG 540 ==
LOC: JD.OB 12:32 → OBSVTOIN 12-11 18:23 → JD.OB 12-11 18:23
PROVIDERS: ADMIT Obstetrics & Gynecology; ATTEND Obstetrics & Gynecology
PROC: 10D00Z1 Extraction of Products of Conception, Low, Open Approach (ICD-10-PCS; principal; 2017-12-11)
PROC: 3E033VJ Introduction of Other Hormone into Peripheral Vein, Percutaneous Approach (ICD-10-PCS; 2017-12-11)
PROC: 10907ZC Drainage of Amniotic Fluid, Therapeutic from Products of Conception, Via Natural or Artificial Opening (ICD-10-PCS; 2017-12-11)
PROC: 00HU33Z Insertion of Infusion Device into Spinal Canal, Percutaneous Approach (ICD-10-PCS; 2017-12-11)
PROC: 3E0R3BZ Introduction of Anesthetic Agent into Spinal Canal, Percutaneous Approach (ICD-10-PCS; 2017-12-11)
DX: O36.8130 Decreased fetal movements, third trimester, not applicable or unspecified (principal); O62.0 Primary inadequate contractions; O77.0 Labor and delivery complicated by meconium in amniotic fluid; Z3A.40 40 weeks gestation of pregnancy; Z37.0 Single live birth; Z88.8 Allergy status to other drugs, medicaments and biological substances
CPT/HCPCS: 36415; 51702; 85025; 85027; 86850; 86900; 86901; 94762; A9270-GY; J0690; J1885; J2175; J2274; J2300; J2370; J2405; J2590; J2765; J3010; J7042; J7120